=== PATIENT | male | born 1975 ===

== ENCOUNTER 2016-12-29 21:31 | Emergency (ER) | payer SELFPAY ==
[2016-12-29 21:37] VITALS: BP 131/79; PULSE 84; RESP 17; O2SAT 98
--- NOTE | 2016-12-29 21:43 | ED PDOC ---
HPI: Psych/Substance Abuse Time Seen by Provider: 12/29/16 21:41 Chief Complaint (Nursing): Alcohol Ingestion Additional Complaint(s): Pt brought to ED by EMS and [facility] for alcohol intoxication. Pt was found on sidewalk [address] with alcohol on breath Past Medical History Vital Signs: Last Vital Signs Temp Pulse 84 12/29/16 21:34 Resp 17 12/29/16 21:34 BP 131/79 12/29/16 21:34 Pulse Ox 98 12/29/16 21:34 - Allergies Allergies/Adverse Reactions: Allergies Allergy/AdvReac Type Severity Reaction Status Date / Time No Known Allergies Allergy Verified 12/29/16 21:42 - ECG O2 Sat by Pulse Oximetry: 98
== END 2016-12-30 00:10 | disposition home or self-care (01) ==
LOC: H.ER 21:31
DX: F10.10 Alcohol abuse, uncomplicated (principal)